=== PATIENT | male | born 1935 | race Caucasian/White ===

== ENCOUNTER → 2020-01-02 | Day surgery (SDC) | payer OTHER, MEDICARE ==
[~2020-01-02] VITALS: Ht 177.8 cm; Wt 113.4 kg
[~2020-01-02] MED LIST: ALLOPURINOL 10100 M1 PO; ALLOPURINOL 10100 M2 PO; AMARYL2 MG PO; AMARYL4 MG PO; ASPIR 8181 MG PO; CHERRY TART PO; DEMADEX20 MG PO; DOXAZOSIN MESYLA2 MG PO; FENOFIBRATE160 MG PO; FISH OIL 1,001000 M2 PO; FLECAINIDE ACET50 M2 PO; FLOMAX0.4 MG PO; KLOR-CON 1010 MEQ PO; LASIX 20 MG TAB20 MG PO; MULTI VITAMIN1 EACH PO; RANITIDINE 150150 M1 PO; STOOL SOFTENER100 M1 PO; XARELTO20 MG PO; ZOCOR 10 MG TAB10 M1 PO; ZOCOR20 MG PO
[2020-01-02 13:32] VITALS: BP 113/79
[2020-01-02 13:43] LABS: CALCIUM 8.9 mg/dL (8.5-10.1); CREATININE 1.2 mg/dL (0.7-1.3); POTASSIUM 3.8 mmol/L (3.5-5.1)
--- NOTE | 2020-01-02 16:32 | EKG ---
[facility] [place] [address] ELECTROCARDIOGRAM REPORT Name: SOFIA COOMBS Room #: REG [facility].#: [id number] Admission: 01/02/20 Attend Phys: Ed Marion MD Discharge: Date of : 39 Report #: [id number] THIS REPORT FOR: cc: Miguel Angel Mares,Miguel Angel Meyer,Juni Waller MD ~ THIS REPORT FOR: //name// [facility] Test Date: 2020-01-02 Test Time: 13:06:24 Pat Name: SOFIA COOMBS Department: Room: Gender: Quality Control Systems Manager: MORRIS : 1935 Requested By: Ed Marion Order Number: [id number] MD: Juni Johnson Measurements Intervals [place] Rate: 68 P: 0 AL: 150 QRS: -76 QRSD: 176 T: 106 QT: 455 QTc: 484 Interpretive Statements Sinus rhythm Multiple ventricular premature complexes Nonspecific IVCD with LAD Abnrm T, consider ischemia, anterolateral lds Artifact in lead(s) I,II,aVR,aVL,V3 and baseline wander in lead(s) V2,V4 No previous ECG available for comparison Electronically Signed On 01-02-2020 16:31:13 ICU CLERK by Juni Johnson [email or web address] <ELECTRONICALLY SIGNED> By: Juni Johnson MD 01/02/20 1631 1306 [id number] Juni Johnson MD /EPI
--- NOTE | 2020-01-06 06:17 | O ---
[facility] [place] [address] OPERATIVE REPORT Name: SOFIA COOMBS Room #: REG [facility]..#: [id number] Admission: 01/02/20 Attend Phys: Ed Marion MD Discharge: Date of : 39 Report #: [id number] THIS REPORT FOR: cc: Miguel Angel Mares,Miguel Angel Shetty,Ed Handley MD ~ CC: Miguel Angel Disla DATE OF SERVICE: 01/02/2020 SURGEON: Ed Marion MD PREOPERATIVE DIAGNOSIS: Bilateral nasal lacrimal duct obstruction. POSTOPERATIVE DIAGNOSIS: Bilateral nasal lacrimal duct obstruction. OPERATION PERFORMED: Bilateral endoscopic balloon dacryoplasty with silicone intubation. ANESTHESIA: General. COMPLICATIONS: None. INDICATIONS FOR SURGERY: This patient has acquired bilateral nasal lacrimal duct stenosis with chronic tearing and discharge, both eyes. The current procedures are undertaken in order to improve the patient's level of lacrimal outflow and visual clarity. Informed consent was obtained to include but not limited to the potential risks for damage to the eye, loss of vision, bleeding, infection, failure to improve the problem and need for further surgery. DESCRIPTION OF OPERATION: The patient was taken to the operating room, where general anesthesia was administered. The medial canthi were anesthetized with 2% Xylocaine with epinephrine mixed with equal parts of 0.75% Marcaine with Wydase. The lateral copeland of the nose were then bilaterally injected with the same anesthetic mixture. The nose was packed with Afrin-soaked cottonoids. The patient was then prepped and draped in the usual sterile fashion. A moist compress was placed on the left eye while attention was turned to the right side. The superior and inferior puncta were then atraumatically dilated with a punctum dilator. A size 0 lacrimal probe was then passed through the superior canalicular system and through the stenosed nasal lacrimal duct. The nasal [facility] [address] [place] [address] OPERATIVE REPORT Name: CORINSOFIA BERLIN Room #: REG [facility].#: [id number] Admission: 01/02/20 Attend Phys: Ed Marion MD Discharge: Date of : 39 Report #: [id number] packing was removed and the endoscope was brought into the field. The inferior turbinate was gently infractured with a [place] periosteal elevator to allow visualization of the inferior meatus in the area of the opening of the valve of Hasner in the nose. The probe was found and confirmed to be in the proper location. It was removed and subsequently replaced with a size 1 and a size 2 [place] probe, which also had their passage confirmed endoscopically to be in the proper location. A 3 by 15 LacriCatheter was lubricated with a small quantity of ophthalmic antibiotic ointment. The LacriCatheter was then passed through the superior canalicular system and the stenosed nasal lacrimal duct. The LacriCatheter was confirmed to be in the proper location endoscopically intranasally in the inferior meatus. The LacriCatheter was inflated to 9 atmospheres for 90 seconds and deflated. The catheter was then inflated to 9 atmospheres for 60 seconds. The catheter was then withdrawn to the proximal black ring. It was then inflated to 9 atmospheres for 90 seconds. The balloon was then deflated and reinflated to 9 atmospheres for 60 seconds. The balloon was the aspirated and withdrawn to the distal black ring. It was then inflated to 9 atmospheres for 90 seconds. The balloon was deflated and reinflated to 9 atmospheres for 60 seconds. The balloon was then deflated and vigorously aspirated as it was withdrawn through the superior canalicular system. A Cook tube was then passed through the superior canalicular system and out the dilated duct. The Cook tube was secured under the inferior turbinate in the inferior meatus with a Cook hook and retrieved endoscopically. The Cook tube was then passed through the inferior canalicular system in a similar fashion and was retrieved endoscopically in the nose atraumatically. The Cook tube was then secured to itself with 3 square throws and then to the lateral wall of the nose with a 5-0 Prolene suture. Attention was then turned to the other side, where the same procedure was performed. Antibiotic steroid drops were then placed in both eyes. A small quantity of ophthalmic antibiotic ointment was placed on the Cook tube. The patient was then transported to the recovery area with no anesthetic or operative complications being noted. <ELECTRONICALLY SIGNED> By: Ed Marion MD 01/06/20 0617 1616 1629 Ed Marion MD /nt
== END | disposition home or self-care (01) ==
LOC: OR 07:36 → EDSTATUS 19:14
PROVIDERS: Ophthalmology
DX: H04.553 Acquired stenosis of bilateral nasolacrimal duct (principal); E11.9 Type 2 diabetes mellitus without complications; G47.30 Sleep apnea, unspecified; K21.9 Gastro-esophageal reflux disease without esophagitis; Z98.890 Other specified postprocedural states; Z79.899 Other long term (current) drug therapy; Z79.82 Long term (current) use of aspirin; Z87.442 Personal history of urinary calculi
CPT/HCPCS: 50010; 50101; 50261; 50386; 50398; 51777; 56528; 62110; 62900; 64037; 70005